=== PATIENT | male | born 1995 | race Caucasian/White ===

== ENCOUNTER 2020-12-31 20:08 | Emergency (ER) | payer SELFPAY ==
[~2020-12-31] VITALS: Ht 175.3 cm; Wt 68.0 kg
[2020-12-31 21:00] VITALS: BP 127/90
--- NOTE | 2020-12-31 21:03 | NUR ---
TO LOBBY A/W BED AMBULATORY
--- NOTE | 2020-12-31 21:09 | NUR ---
SEEN AND EXAMINED BY ERMD, WITH ORDERS.
[2020-12-31] MEDS ORDERED: IBUPROFEN 800 MG TAB PO ONE (21:20)
[2020-12-31] MEDS ORDERED: LORazepam 1 MG TAB PO ONE (21:20)
--- NOTE | 2020-12-31 22:15 | NUR ---
MEDICATED PER ERMDS ORDER , TOLERATED WELL.
[2020-12-31 23:30] VITALS: BP 122/79
--- NOTE | 2020-12-31 23:30 | NUR ---
Patient discharged with v/s stable. Written and verbal after care instructions given and explained. Patient verbalized understanding. Ambulatory with steady gait. All questions addressed prior to discharge. Advised to follow up with PMD.
== END 2020-12-31 23:30 | disposition home or self-care (01) ==
LOC: MED 20:08
DX: F41.9 Anxiety disorder, unspecified (principal); R51.9 Headache, unspecified; R44.0 Auditory hallucinations; F20.9 Schizophrenia, unspecified
CPT/HCPCS: 93005; 99283

== ENCOUNTER 2021-05-23 13:01 | Emergency (ER) | payer SELFPAY ==
[~2021-05-23] VITALS: Ht 172.7 cm; Wt 73.1 kg
--- NOTE | 2021-05-23 13:07 | NUR ---
Patient ambulated with steady gait to bed 4.
--- NOTE | 2021-05-23 13:08 | NUR ---
PT BIB SELF C/O RT SIDE HEAD/EYE PAIN S/P ETOH MEC FALL 05/22/23 AT 2AM NO LOC/KO. PT STS " I DO NOT FEEL GOOD. IM FEELING VERY DIZZY AND OUT OF IT."
--- NOTE | 2021-05-23 13:09 | NUR ---
ER AT BEDSIDE FOR EVAL
--- NOTE | 2021-05-23 13:15 | NUR ---
PATIENT REFUSING IV INSERTION AT THIS TIME. DR. MCCAULEY MADE AWARE.
[2021-05-23] MEDS ORDERED: LORazepam 2 MG/ML VIAL IVP ONE (13:20)
[2021-05-23] MEDS ORDERED: NACL 0.9% 1,000 ML IV ONE (13:20)
[2021-05-23 13:21] VITALS: BP 110/100
--- NOTE | 2021-05-23 13:25 | NUR ---
DR. MCCAULEY IS EVALUATING PATIENT AT BEDSIDE. PT A&OX4 REFUSING IV INSERTION AT THIS TIME; DR. MCCAULEY AT BEDSIDE ADVISING OF BENEFITS AND RISKS. PT REFUSES STATES "I JUST WANT THE CT SCAN COMPLETED. I'LL FOLLOW UP WITH MY DOCTOR LATER."
--- NOTE | 2021-05-23 13:31 | NUR ---
PT TRANSPORTED TO CT ACCOMPANIED BY RN AND TELEMETRY BOX
--- NOTE | 2021-05-23 13:34 | NUR ---
X-Ray at bedside.
--- NOTE | 2021-05-23 13:41 | NUR ---
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 Bed locked in lowest position, side rails x 2, call light in reach.
--- NOTE | 2021-05-23 13:43 | NUR ---
EMT AT BEDSIDE FOR EKG
[2021-05-23 13:55] VITALS: BP 131/85
--- NOTE | 2021-05-23 13:57 | NUR ---
Lab at bedside
--- NOTE | 2021-05-23 14:00 | NUR ---
PATIENT REFUSED LABS, DR. MCCAULEY NOTIFIED.
--- NOTE | 2021-05-23 14:01 | NUR ---
PATIENT AMBULATED TO RESTROOM W/ STEADY GAIT.
--- NOTE | 2021-05-23 14:04 | NUR ---
PATIENT AMBULATED BACK TO BEDSIDE.
--- NOTE | 2021-05-23 14:22 | NUR ---
DR HOUSTON EVALUATING PATIENT AT BEDSIDE
--- NOTE | 2021-05-23 14:51 | NUR ---
Patient does not wish to proceed with medical care recommended by DR HOUSTON. Patient A&OX4, given information related to possible complications, up to and including , which could occur as a result of leaving hospital at this time. Patient verbalizes understanding of risks involved leaving against medical advice. Patient has signed AMA form.
--- NOTE | 2021-05-23 14:52 | NUR ---
Chart checked and completed. The patient's care was reviewed and supervised by Suzan James RN.
== END 2021-05-23 14:51 | disposition left against medical advice (07) ==
LOC: MED 13:01
DX: S09.90XA Unspecified injury of head, initial encounter (principal); R00.0 Tachycardia, unspecified; S06.0X9A Concussion with loss of consciousness of unspecified duration, initial encounter; W18.39XA Other fall on same level, initial encounter; Y93.89 Activity, other specified; Y92.89 Other specified places as the place of occurrence of the external cause; Y99.8 Other external cause status
CPT/HCPCS: 70450; 72125; 93005; 99285

== ENCOUNTER 2023-06-05 22:12 | Emergency (ER) | payer OTHER ==
[~2023-06-05] VITALS: Ht 172.7 cm; Wt 63.5 kg
[2023-06-05 22:56] VITALS: BP 120/86; PULSE 98; RESP 18; TEMP 98.8; O2SAT 100
[2023-06-05 23:28] LABS: FLU A ANTIGEN negative (NEGATIVE); FLU B ANTIGEN negative (NEGATIVE)
== END 2023-06-06 01:10 | disposition left against medical advice (07) ==
LOC: MED 22:12
DX: R50.9 Fever, unspecified (principal); Z20.822 Contact with and (suspected) exposure to COVID-19; Z53.21 Procedure and treatment not carried out due to patient leaving prior to being seen by health care provider
CPT/HCPCS: 99281

== ENCOUNTER 2023-10-12 23:03 | Emergency (ER) | payer OTHER | END 2023-10-12 23:32 | disposition left against medical advice (07) | LOC: MED 23:03 | DX: R51.9 Headache, unspecified (principal); Z53.21 Procedure and treatment not carried out due to patient leaving prior to being seen by health care provider ==